=== PATIENT | male | born 1995 | race Caucasian/White ===

== ENCOUNTER 2019-01-18 11:32 | Inpatient (IN) | payer OTHER ==
[2019-01-18] MEDS ORDERED: TEARS/DEXTRAN 70/HYPROMELLOSE 15 ML OPHT.BTL EACHEYE PRN (14:06)
[2019-01-18] MEDS ORDERED: PETROLAT,WHT/MIN OIL/SOD CHL 3.5 GM OPHT.OINT EACHEYE PRN (14:06)
--- NOTE | 2019-01-18 14:44 | GHP ---
[f rep st] HISTORY AND PHYSICAL POST ADMISSION PHYSICIAN EVALUATION AND REHABILITATION TREATMENT PLAN DATE OF ADMISSION: 01/18/2019 DATE OF EVALUATION: 01/18/2019 TIME OF EVALUATION: 1330 REFERRING FACILITY: [facility]. IMPAIRMENT GROUP: 3.4. DATE OF ONSET: 01/11/2019 REFERRING PHYSICIAN: Dr. Acosta. CONSULTING PHYSICIANS: He was managed by the hospitalist Service, Pulmonary and Critical Care and Neurology, Dr. Arevalo. REHABILITATION DIAGNOSIS: Guillain-Elgin syndrome. ETIOLOGIC DIAGNOSIS: Guillain-Elgin syndrome. HISTORY OF PRESENT ILLNESS: This patient began to develop weakness and tingling of the extremities 1 to 2 weeks prior to his admission to [facility]. This followed symptoms of the flu and then sinusitis for which he was treated with antibiotics and corticosteroids. He was living in [facility]. As he was becoming symptomatic, his father went to [place] and he flew back to [place] with his father and then presented at the hospital. There, evaluation included an MRI of the brain which was normal, though it showed changes in the trigeminal nerve consistent with Guillain-Elgin. He had an LP which was also consistent with Guillain-Elgin. He was treated with IVIG and has had some improvement in his symptoms. Other laboratory studies during his stay (I do not have a comprehensive list): On admission, metabolic panel was essentially normal. He had a slight elevation of glucose at 105. CBC showed normal hemoglobin and hematocrit and white blood cell count and platelet count. CRP was normal. Lumbar puncture showed a slightly elevated white blood cell count at 8. HIV test was negative. Coagulation studies were negative. CSF protein was elevated. Chest x-ray showed a subtle infiltrate at the right base on 01/13/2019, which subsequently improved. On the day before discharge, CBC showed either dilution or blood loss from multiple lab draws. His hemoglobin was 14.2 and his hematocrit was 40 , platelet count and white blood cell counts were normal. Basic metabolic profile showed a very slightly low sodium at 135. PRECAUTIONS: He is a fall risk and he has aspiration precautions. ACTIVE COMORBIDITIES: He has the tier 2 comorbidity of dysphagia. Otherwise, he has no active tier 1, tier 2 or tier 3 comorbidities. PAST MEDICAL HISTORY: He has not had any significant medical illnesses. PAST SURGICAL HISTORY: He has had wisdom teeth extraction. PRE-HOSPITAL MEDICATIONS: He was not on any medications. ADMISSION MEDICATIONS: 1. Artificial Tears four times daily p.r.n. 2. Carvedilol 3.125 mg p.o. twice daily. 3. Enoxaparin 40 mg subcutaneous daily. 4. Gabapentin 300 mg three times daily. 5. Acetaminophen 650 mg p.o. q.6 hours p.r.n. ALLERGIES: There are no known drug allergies. SOCIAL HISTORY: He is currently living with his parents and plans to discharge to his parents' home. They may set up the bedroom on the on the 1st floor. There is a half bath on the 1st floor. There is a bedroom and full bath on the 2nd floor. 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 He is a nonsmoker. FAMILY HISTORY: Noncontributory. REVIEW OF SYSTEMS: He is not in pain, though he has some tingling in the extremities. He is aware of some difficulty with swallowing but no aspiration. He has difficulty with dry, crumbly foods. He is aware of reduced facial expression and oral weakness. He is unable to maintain a labial seal. He still has some double vision, but that has been improving. He has some irritation to his eyes. He thinks that he is stronger on his right side than his left side. He denies cough or dyspnea. He denies chest pain or palpitations. He denies nausea, vomiting, constipation, or diarrhea. He had constipation for several days in the hospital, but this has resolved. He denies dysuria or urinary frequency or any other difficulties with urination. He denies joint pain or joint swelling. He is in good spirits. Otherwise, a 10 -point review of systems is negative. PHYSICAL EXAM: VITAL SIGNS: Blood pressure is 129/66, heart rate is 111, respiratory rate is 15, oxygen saturation is 95% on room air. Temperature is 36.7 degrees centigrade. His weight is 75.3 kg for a body mass index of 23.8. GENERAL: This is a well-nourished, well-developed man, appears his chronologic age, cooperative and in no acute distress. Lying in bed, dressed in street clothes. HEENT: Extraocular movements are intact. He has inability to close his eyes fully with the lower lids not moving far enough to meet the upper lids. Pupils are equal, round, reactive to light. Mucous membranes are moist. Dentition is in good condition. He has a crowded airway, Mallampati class 1. NECK: Supple. HEART: Regular rate and rhythm with no gallops. LUNGS: Clear to auscultation bilaterally. ABDOMEN: Soft, nontender, nondistended. Normoactive bowel sounds and no hepatosplenomegaly. EXTREMITIES: There is no cyanosis, clubbing, or edema. NEUROLOGIC: He is alert and oriented x3. He has cranial nerve deficits with inability to close his lower eyelids and much reduced facial movement at the cranial nerves V1, V2 and V3 distribution. He is unable to maintain a labial seal. Tongue movement is normal and palate elevates symmetrically. Shoulder shrug is normal. Regarding motor strength, hand recooperer are 5/5 bilaterally. Biceps and triceps are 4+/5 in the left and 5/ 5 on the right. Hip flexors and quadriceps are 5/5 bilaterally. Hamstrings are 4/5 bilaterally. Sensation is intact to light touch. Deep tendon reflexes are absent at the biceps, patella and Achilles tendons. Rapid alternating movements are normal and [id number] testing is normal. CURRENT LEVEL OF FUNCTION: Per the pre-admission screen, he was on a dysphagia 4 diet, avoiding dry, crumbly food. He was taking thin liquids. He was noted to have mild dysphagia and difficulty with bolus cohesiveness with trace to minimal residue in the sulci. He had flaccid dysarthria. Grooming was done with contact guard standing at the sink with a front-wheeled walker. Bed mobility required close supervision with the head of the bed elevated and a bed rail. Transfers required minimal assist to contact guard assist. He used a front-wheeled walker. Seated balance required close supervision. Static standing balance required contact guard and dynamic standing balance required minimal assist. His endurance was fair. He ambulated 400 feet with minimal assist. He had an ataxic gait pattern and inconsistent step length. He ambulated with a slow adolph. Communication was normal. Cognition was considered normal. On today's exam, he appears to have improved bed mobility. Otherwise, there are no significant differences from the pre-admission screen. IMPRESSION: This is a 23-year-old man with Guillain-Elgin syndrome. Given significant bulbar symptoms, labs are still pending to rule out Ortiz Hanks variant. He has been treated with IVIG and he has had considerable improvement , though he still has gait abnormalities, balance abnormality, weakness on the left greater than the right side, mild dysphagia, significant dysarthria and other cranial nerve dysfunction. He is appropriate for inpatient rehabilitation. His goal is to complete a rehabilitation stay and then return home with his family and outpatient services. He does not plan to return to [facility] until he is fully healed. For a safe discharge, it is anticipated that he will tolerate a regular diet without signs or symptoms of aspiration. He will progress to modified independence for all activities of daily living and functional activities. He and his family will demonstrate understanding of his limitations and compensatory strategies. He will have therapy with physical therapy, occupational therapy, and speech and language pathology for 60 minutes per day for each discipline on 5 to 7 days of the week. His expected duration of stay is 7 to 10 days. It is anticipated that upon discharge he will have outpatient therapy with OT, [facility] and PT. PLAN: 1. Debility with left greater than right-sided weakness due to Guillain-Elgin syndrome. PT and OT to optimize mobility and activities of daily living to the modified independent level. 2. Dysarthria and mild dysphagia. 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 Evaluation for Speech and Language Pathology. 3. Tachycardia noted in the hospital. He has been treated with carvedilol. Vitals will be monitored. We will check orthostatic vital signs as well. 4. Incomplete closure of eyelids. I will prescribe ophthalmic ointment at bedtime and will monitor for any signs or symptoms of irritation. 5. History of influenza and sinusitis. Symptoms appear to have resolved. 6. Followup is unclear from hospital discharge paperwork. Most likely he will follow up with [facility] after his discharge. He will also need to follow up with a primary care physician. /[id number]/MODL MTDD
--- NOTE | 2019-01-18 16:52 | PDOREHIP ---
Admission [facility] - Admission - 3 Day Assessment Period Admission Date/Day 1: 01/18/19 Day 2: 01/19/19 Day 3: 01/20/19 - Active Diagnoses Comorbidities and Co-existing Conditions at Admission: 77251. None of the Above - Skin Conditions Unhealed Pressure Ulcer (1 or more/Stage 1 or >)-Admission: 0. No # Stage 1 Pressure Ulcers-Admission: 0 # Stage 2 Pressure Ulcers-Admission: 0 # Stage 3 Pressure Ulcers-Admission: 0 # Stage 4 Pressure Ulcers-Admission: 0 # Unstageable Pressure Ulcers (Non-remove Dress)-Admission: 0 # Unstageable Pressure Ulcers (Slough/Eschar)-Admission: 0 # Unstageable Pressure Ulcers (Deep Tissue Injury)-Admission: 0
[2019-01-18] MEDS: GABAPENTIN 300 MG CAP PO SCH ×2 (18:18→21:07)
[2019-01-18] MEDS: ENOXAPARIN 40 MG/0.4 ML SYR SC SCH (18:18)
[2019-01-18] MEDS: CARVEDILOL 3.125 MG TAB PO SCH (18:18)
[2019-01-19] MEDS: CARVEDILOL 3.125 MG TAB PO SCH ×2 (08:38→19:15)
[2019-01-19] MEDS: GABAPENTIN 300 MG CAP PO SCH ×3 (08:38→21:45)
--- NOTE | 2019-01-19 10:39 | SOAPPROG ---
SOAP Progress Note Assessment/Plan: Assessment: Debility with left greater than right-sided weakness due to Guillain-[place]field syndrome. PT and OT to optimize mobility and activities of daily living to the modified independent level. Dysarthria and mild dysphagia. 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 Evaluation for Speech and Language Pathology. 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 He has been treated with carvedilol. Vitals will be monitored. We will check orthostatic vital signs as well. Incomplete closure of eyelids. Continue ophthalmic ointment at bedtime and will monitor for any signs or symptoms of irritation. He may keep artificial tears with him and use as needed. History of influenza and sinusitis. Symptoms appear to have resolved. Followup is unclear from hospital discharge paperwork. Most likely he will follow up with [facility] after his discharge. He will also need to follow up with a primary care physician. 01/19/19 10:38 Subjective: Complains of difficulty attaining sleep due to generalized discomfort. Eyes feel okay. He would like to keep the eyedrops with him to use more frequently. Otherwise without complaints. No cough or dyspnea. No sheba dysphagia. Objective: Vital Signs Temp Pulse Resp BP Pulse Ox 39.9 C H 90 16 120/75 97 01/18/19 18:10 01/19/19 08:38 01/18/19 18:10 01/19/19 08:38 01/18/19 18:10 01/18/19 01/19/19 01/20/19 05:59 05:59 05:59 Intake Total 1450 Output Total 850 Balance 600 Physical Exam - Physical Exam General Appearance: WD/WN, alert, no apparent distress Respiratory: No respiratory distress, No accessory muscle use Skin: normal color, warm/dry Neuro/Psych: alert, normal mood/affect, abnormal archivist II-XII (Reduced movement of lower eyelids and reduced facial expression), speech abnormalities ( Dysarthria) ICD10 Worksheet Patient Problems: Problems Problem Status Onset Guillain Casanova syndrome Acute
[2019-01-19] MEDS ORDERED: TEARS/DEXTRAN 70/HYPROMELLOSE 15 ML OPHT.BTL EACHEYE PRN (10:40)
[2019-01-19] MEDS: ENOXAPARIN 40 MG/0.4 ML SYR SC SCH (16:24)
[2019-01-19] MEDS: ACETAMINOPHEN 500 MG TAB PO SCH (21:45)
[2019-01-20] MEDS: CARVEDILOL 3.125 MG TAB PO SCH ×2 (08:25→17:11)
[2019-01-20] MEDS: GABAPENTIN 300 MG CAP PO SCH ×3 (08:25→21:38)
--- NOTE | 2019-01-20 11:49 | SOAPPROG ---
SOAP Progress Note Assessment/Plan: Assessment: Debility with left greater than right-sided weakness due to Guillain-Cicero syndrome. * Initial functional independence measure is 85 on 01/20/2019. He transfers with standby assist to contact guard assist. Ambulates to 200 ft with a front wheeled walker, contact guard assist to standby assist. Climbed and descended 3 stairs with contact guard assist and bilateral rails. He does grooming and hygiene standing with a front wheeled walker and supervision. Upper body dressing is with setup and modified independence. Lower body dressing is with supervision for balance. Toilet transfers with supervision, toileting is with distant supervision. He has diplopia especially with fatigue. * Continue PT and OT to optimize mobility and activities of daily living to the modified independent level. Dysarthria and mild dysphagia. 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 * Flaccid be you cool and labial function but he compensates well for swallowing and speech. * Transient response to an MBS; will be appropriate with better return of nerve function. * Continue Speech and Language Pathology. Tachycardia noted in the hospital, possible autonomic dysfunction due to Guillain-Cicero syndrome. He has been treated with carvedilol. Vitals will be monitored. We will check orthostatic vital signs as well. Incomplete closure of eyelids. Continue ophthalmic ointment at bedtime and will monitor for any signs or symptoms of irritation. He may keep artificial tears with him and use as needed. History of influenza and sinusitis. Symptoms appear to have resolved. DISPOSITION: Attended staffing, 15 min, 01/20/2019. Discussed with case management, dietitian, nursing, PT, OT, BLADDER CHANGER. Intends to stay with his parents and [place] on tele as function is significantly improved, prior to return to living in [facility]. There are 2 platform steps to enter and then 7 steps to get to an upper level bedroom; otherwise he might stay on the 1st floor with a half bath. Tentative discharge date set for 01/25/2019. Followup is unclear from hospital discharge paperwork. Most likely he will follow up with [facility] after his discharge. He will also need to follow up with a primary care physician. 01/20/19 11:44 Subjective: No complaints. Feeling stronger. Sleeping well. Not in pain. Objective: Vital Signs Temp Pulse Resp BP Pulse Ox 36.3 C 102 H 20 128/88 H 95 01/19/19 20:00 01/20/19 07:48 01/20/19 07:48 01/20/19 07:48 01/20/19 07:48 01/19/19 01/20/19 01/21/19 05:59 05:59 05:59 Intake Total 1450 1820 200 Output Total 850 Balance 600 1820 200 - Time Spent With Patient Time Spent With Patient: Greater than 35 min floor time today, including more than 50% of time in coordination of care during staffing meeting, and counseling patient and his parents. Physical Exam - Physical Exam General Appearance: WD/WN, alert, no apparent distress Respiratory: No respiratory distress, No accessory muscle use Skin: normal color, warm/dry Neuro/Psych: alert, normal mood/affect, oriented x 3, abnormal supervisor uranium processing II-XII, abnormal gait ICD10 Worksheet Patient Problems: Problems Problem Status Onset Guillain Casanova syndrome Acute
[2019-01-20] MEDS: ENOXAPARIN 40 MG/0.4 ML SYR SC SCH (17:11)
[2019-01-20] MEDS: ACETAMINOPHEN 500 MG TAB PO SCH (21:11)
[2019-01-21] MEDS: GABAPENTIN 300 MG CAP PO SCH ×3 (08:17→21:15)
[2019-01-21] MEDS: CARVEDILOL 3.125 MG TAB PO SCH ×2 (08:17→17:22)
--- NOTE | 2019-01-21 12:31 | SOAPPROG ---
SOAP Progress Note Assessment/Plan: Assessment: Debility with left greater than right-sided weakness due to Guillain-[place] syndrome. * Initial functional independence measure is 85 on 01/20/2019. He transfers with standby assist to contact guard assist. Ambulates to 200 ft with a front wheeled walker, contact guard assist to standby assist. Climbed and descended 3 stairs with contact guard assist and bilateral rails. He does grooming and hygiene standing with a front wheeled walker and supervision. Upper body dressing is with setup and modified independence. Lower body dressing is with supervision for balance. Toilet transfers with supervision, toileting is with distant supervision. He has diplopia especially with fatigue. * Ordered left AFO to reduce ankle dorsiflexion and reduced knee buckling with ambulation, as indicated by PT. * Continue PT and OT to optimize mobility and activities of daily living to the modified independent level. Dysarthria and mild dysphagia. 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 * Flaccid buccal and labial function but he compensates well for swallowing and speech. * Transient response to NEMS; will be appropriate with better return of nerve function. * Continue Speech and Language Pathology. Tachycardia noted in the hospital, possible autonomic dysfunction due to Guillain-[place] syndrome. He has been treated with carvedilol. Vitals will be monitored. We will check orthostatic vital signs as well. Incomplete closure of eyelids. Continue ophthalmic ointment at bedtime and will monitor for any signs or symptoms of irritation. He may keep artificial tears with him and use as needed. History of influenza and sinusitis. Symptoms appear to have resolved. DISPOSITION: Attended staffing, 15 min, 01/20/2019. Discussed with case management, dietitian, nursing, PT, OT, PATIENT CARE DIRECTOR. Intends to stay with his parents and [place] [facility] as function is significantly improved, prior to return to living in [facility]. There are 2 platform steps to enter and then 7 steps to get to an upper level bedroom; otherwise he might stay on the 1st floor with a half bath. Tentative discharge date set for 01/25/2019. Followup is unclear from hospital discharge paperwork. Most likely he will follow up with [facility] after his discharge. He will also need to follow up with a primary care physician. 01/21/19 12:29 Subjective: No complaints. Denies eye irritation. Thinks his dysarthria is improving. Sleeping well. Not in pain. Objective: Vital Signs Temp Pulse Resp BP Pulse Ox 36.9 C 95 18 125/88 H 94 01/21/19 07:20 01/21/19 08:17 01/21/19 07:20 01/21/19 08:17 01/21/19 07:20 01/20/19 01/21/19 01/22/19 05:59 05:59 05:59 Intake Total 1820 3280 Output Total 250 750 Balance 1820 3030 -750 Physical Exam - Physical Exam General Appearance: WD/WN, alert, no apparent distress Respiratory: No respiratory distress, No accessory muscle use Skin: normal color, warm/dry Neuro/Psych: alert, normal mood/affect, oriented x 3, abnormal gait, speech abnormalities (Dysarthria) ICD10 Worksheet Patient Problems: Problems Problem Status Onset Guillain Casanova syndrome Acute
[2019-01-21] MEDS: ACETAMINOPHEN 325 MG TAB PO PRN (14:56)
[2019-01-21] MEDS: ENOXAPARIN 40 MG/0.4 ML SYR SC SCH (14:57)
[2019-01-21] MEDS: ACETAMINOPHEN 500 MG TAB PO SCH (21:15)
[2019-01-22] MEDS: CARVEDILOL 3.125 MG TAB PO SCH ×2 (09:13→18:19)
[2019-01-22] MEDS: GABAPENTIN 300 MG CAP PO SCH ×3 (09:13→21:36)
--- NOTE | 2019-01-22 09:37 | SOAPPROG ---
SOAP Progress Note Assessment/Plan: Assessment: Debility with left greater than right-sided weakness due to Guillain-[place] syndrome. * Initial functional independence measure is 85 on 01/20/2019. He transfers with standby assist to contact guard assist. Ambulates to 200 ft with a front wheeled walker, contact guard assist to standby assist. Climbed and descended 3 stairs with contact guard assist and bilateral rails. He does grooming and hygiene standing with a front wheeled walker and supervision. Upper body dressing is with setup and modified independence. Lower body dressing is with supervision for balance. Toilet transfers with supervision, toileting is with distant supervision. He has diplopia especially with fatigue. * Ordered left AFO to reduce ankle dorsiflexion and reduced knee buckling with ambulation, as indicated by PT. * Continue PT and OT to optimize mobility and activities of daily living to the modified independent level. Dysarthria and mild dysphagia. 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 * Flaccid buccal and labial function but he compensates well for swallowing and speech. * Transient response to NEMS; will be appropriate with better return of nerve function. * Continue Speech and Language Pathology. Tachycardia noted in the hospital, possible autonomic dysfunction due to Guillain-[place] syndrome. He has been treated with carvedilol. Vitals will be monitored. * Improving as of 01/22/2019. Consider discontinuation of carvedilol. Incomplete closure of eyelids. Continue ophthalmic ointment at bedtime and will monitor for any signs or symptoms of irritation. He may keep artificial tears with him and use as needed. History of influenza and sinusitis. Symptoms appear to have resolved. DISPOSITION: Attended staffing, 15 min, 01/20/2019. Discussed with case management, dietitian, nursing, PT, OT, AUDIT PARTNER. Intends to stay with his parents and [place] on tele as function is significantly improved, prior to return to living in [facility]. There are 2 platform steps to enter and then 7 steps to get to an upper level bedroom; otherwise he might stay on the 1st floor with a half bath. Tentative discharge date set for 01/25/2019. Followup is unclear from hospital discharge paperwork. Most likely he will follow up with [facility] after his discharge. He will also need to follow up with a primary care physician. 01/22/19 09:36 Subjective: No complaints. Slept well. Not in pain. No cough or dyspnea, no fever chills. Objective: Vital Signs Temp Pulse Resp BP Pulse Ox 37.0 C 96 18 127/79 H 95 01/21/19 20:00 01/22/19 09:13 01/21/19 20:00 01/22/19 09:13 01/21/19 20:00 01/21/19 01/22/19 01/23/19 05:59 05:59 05:59 Intake Total 3280 1970 Output Total 250 750 Balance 3030 1220 Physical Exam - Physical Exam General Appearance: WD/WN, alert, no apparent distress Respiratory: No respiratory distress, No accessory muscle use Skin: normal color, warm/dry Neuro/Psych: alert, normal mood/affect, oriented x 3, abnormal business project manager II-XII ( Incomplete eye closure with lower lids not moving. Reduced facial skin.), abnormal gait, speech abnormalities (Dysarthria) ICD10 Worksheet Patient Problems: Problems Problem Status Onset Guillain Casanova syndrome Acute
[2019-01-22] MEDS: ENOXAPARIN 40 MG/0.4 ML SYR SC SCH (15:59)
[2019-01-22] MEDS: ACETAMINOPHEN 500 MG TAB PO SCH (21:36)
[2019-01-23] MEDS: GABAPENTIN 300 MG CAP PO SCH (08:17)
[2019-01-23] MEDS: CARVEDILOL 3.125 MG TAB PO SCH ×2 (08:17→17:39)
--- NOTE | 2019-01-23 10:04 | SOAPPROG ---
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 * Initial functional independence measure is 85 on 01/20/2019. He transfers with standby assist to contact guard assist. Ambulates to 200 ft with a front wheeled walker, contact guard assist to standby assist. Climbed and descended 3 stairs with contact guard assist and bilateral rails. He does grooming and hygiene standing with a front wheeled walker and supervision. Upper body dressing is with setup and modified independence. Lower body dressing is with supervision for balance. Toilet transfers with supervision, toileting is with distant supervision. He has diplopia especially with fatigue. * Independent in his room since 01/21/2019. * Continue PT and OT to optimize mobility and activities of daily living to the modified independent level. Dysarthria and mild dysphagia. 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 * Flaccid buccal and labial function but he compensates well for swallowing and speech. * Transient response to NMES; will be appropriate with better return of nerve function. * Continue Speech and Language Pathology. 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 He has been treated with carvedilol. Vitals will be monitored. * Improving as of 01/22/2019. Consider discontinuation of carvedilol. Neuropathic symptoms in the extremities are not bothersome. Will reduce gabapentin from 300 mg three times daily to 100 mg three times daily on 2018. If no worsening in symptoms will discontinue gabapentin on 01/24/2019. Incomplete closure of eyelids. Continue ophthalmic ointment at bedtime and will monitor for any signs or symptoms of irritation. He may keep artificial tears with him and use as needed. History of influenza and sinusitis. Symptoms appear to have resolved. Prophylaxis. Mobility is much improved. Discontinue enoxaparin starting 2018. DISPOSITION: Attended staffing, 15 min, 01/20/2019. Discussed with case management, dietitian, nursing, PT, OT, TRAILER CHIEF. Intends to stay with his parents and [place] on tele as function is significantly improved, prior to return to living in [facility]. There are 2 platform steps to enter and then 7 steps to get to an upper level bedroom; otherwise he might stay on the 1st floor with a half bath. Tentative discharge date set for 01/25/2019. Followup is unclear from hospital discharge paperwork. Most likely he will follow up with [facility] after his discharge. He will also need to follow up with a primary care physician. 01/23/19 10:01 Subjective: No complaints. Sleeping well. Not in pain. He reports some tingling in the extremities but is not painful. Objective: Vital Signs Temp Pulse Resp BP Pulse Ox 36.9 C 115 H 17 104/70 97 01/22/19 19:46 01/23/19 08:00 01/23/19 08:00 01/23/19 08:00 01/23/19 08:00 01/22/19 01/23/19 01/24/19 05:59 05:59 05:59 Intake Total 1970 2310 620 Output Total 750 Balance 1220 2310 620 Physical Exam - Physical Exam General Appearance: WD/WN, alert, no apparent distress Respiratory: No respiratory distress, No accessory muscle use Skin: normal color, warm/dry Neuro/Psych: alert, normal mood/affect, oriented x 3, abnormal merry go round operator II-XII ( Lower eyelids not closing. Reduced facial expression), abnormal gait (Normal pace with front wheeled walker. Reduced knee flexion.), speech abnormalities ( Mild dysarthria.) ICD10 Worksheet Patient Problems: Problems Problem Status Onset Guillain Casanova syndrome Acute
[2019-01-23] MEDS: ACETAMINOPHEN 325 MG TAB PO PRN ×2 (12:29→18:52)
[2019-01-23] MEDS: GABAPENTIN 100 MG CAP PO SCH ×2 (17:04→21:43)
[2019-01-24] MEDS: ACETAMINOPHEN 500 MG TAB PO SCH ×2 (02:32→21:21)
[2019-01-24] MEDS: CARVEDILOL 3.125 MG TAB PO SCH ×2 (08:25→17:36)
[2019-01-24] MEDS: GABAPENTIN 100 MG CAP PO SCH (08:25)
--- NOTE | 2019-01-24 10:44 | PDOREHIP ---
Admission [facility] - Admission - 3 Day Assessment Period Admission Date/Day 1: 01/18/19 Day 2: 01/19/19 Day 3: 01/20/19 - Active Diagnoses Comorbidities and Co-existing Conditions at Admission: 41425. None of the Above Discharge [facility] - Discharge - 3 Day Assessment Period 2 Days Prior to Anticipated Discharge Date: 01/23/19 1 Day Prior to Anticipated Discharge Date: 01/24/19 Anticipated Discharge Date: 01/25/19 - Discharge Skin Conditions Unhealed Pressure Ulcer (1 or more/Stage 1 or >)-Discharge: 0. No # Stage 1 Pressure Ulcers-Discharge: 0 # Stage 2 Pressure Ulcers-Discharge: 0 # of These Stage 2 Pressure Ulcers Present on Admission: 0 # Stage 3 Pressure Ulcers-Discharge: 0 # of These Stage 3 Pressure Ulcers Present on Admission: 0 # Stage 4 Pressure Ulcers-Discharge: 0 # of These Stage 4 Pressure Ulcers Present on Admission: 0 # Unstageable Pressure Ulcers (Non-remove Dress)-Discharge: 0 # These Unstageable Pressure Ulcers (NRD)-Present on Admit: 0 # Unstageable Pressure Ulcers (Slough/Eschar)-Discharge: 0 # These Unstageable Pressure Ulcers(Slough) Present on Admit: 0 # Unstageable Pressure Ulcers (Deep Tissue Injury)-Discharge: 0 # These Unstageable Pressure Ulcers (DTI) Present on Admit: 0
--- NOTE | 2019-01-24 10:44 | SOAPPROG ---
SOAP Progress Note Assessment/Plan: Assessment: Debility with left greater than right-sided weakness due to Guillain-[employer] [place] [employer] syndrome. * Initial functional independence measure is 85 on 01/20/2019. He transfers with standby assist to contact guard assist. Ambulates to 200 ft with a front wheeled walker, contact guard assist to standby assist. Climbed and descended 3 stairs with contact guard assist and bilateral rails. He does grooming and hygiene standing with a front wheeled walker and supervision. Upper body dressing is with setup and modified independence. Lower body dressing is with supervision for balance. Toilet transfers with supervision, toileting is with distant supervision. He has diplopia especially with fatigue. * Independent in his room since 01/21/2019. * Continue PT and OT to optimize mobility and activities of daily living to the modified independent level. Dysarthria and mild dysphagia. 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 * Flaccid buccal and labial function but he compensates well for swallowing and speech. * Transient response to NMES; will be appropriate with better return of nerve function. * Continue Speech and Language Pathology. Tachycardia noted in the hospital, possible autonomic dysfunction due to Guillain-[employer] syndrome. He has been treated with carvedilol. Vitals will be monitored. * Improving as of 01/22/2019. Consider discontinuation of carvedilol, but heart rate was measured at 115 on 01/23/2019. Neuropathic symptoms in the extremities are not bothersome. Will reduce gabapentin from 300 mg three times daily to 100 mg three times daily on 2018. * No worsening of symptoms. Discontinue gabapentin 01/24/2019. Incomplete closure of eyelids. Continue ophthalmic ointment at bedtime and will monitor for any signs or symptoms of irritation. He may keep artificial tears with him and use as needed. History of influenza and sinusitis. Symptoms appear to have resolved. Prophylaxis. Mobility is much improved. Discontinue enoxaparin starting 2018. DISPOSITION: Attended staffing, 15 min, 01/20/2019. Discussed with case management, dietitian, nursing, PT, OT, NET TRAINER. Intends to stay with his parents and [place] [facility] as function is significantly improved, prior to return to living in [facility]. There are 2 platform steps to enter and then 7 steps to get to an upper level bedroom; otherwise he might stay on the 1st floor with a half bath. Tentative discharge date set for 01/25/2019. Followup is unclear from hospital discharge paperwork. Most likely he will follow up with [facility] after his discharge. He will also need to follow up with a primary care physician. 01/24/19 10:42 Subjective: No complaints. Sleeping well. Tingling is almost gone in his feet. He still has some numbness and tingling in his hands. There has been no worsening with the reduction in gabapentin dose. Objective: Vital Signs Temp Pulse Resp BP Pulse Ox 36.5 C 95 16 131/84 H 95 01/24/19 08:00 01/24/19 08:00 01/24/19 08:00 01/24/19 08:00 01/24/19 08:00 01/23/19 01/24/19 01/25/19 05:59 05:59 05:59 Intake Total 2310 1979 620 Balance 2310 1980 620 Physical Exam - Physical Exam General Appearance: WD/WN, alert, no apparent distress Respiratory: No respiratory distress, No accessory muscle use Skin: normal color, warm/dry Neuro/Psych: alert, normal mood/affect, oriented x 3, abnormal psychologist educational II-XII ( Lower lids do not close. Reduced facial expression.), speech abnormalities ( Dysarthria, improving) ICD10 Worksheet Patient Problems: Problems Problem Status Onset Guillain Casanova syndrome Acute
[2019-01-25] MEDS: CARVEDILOL 3.125 MG TAB PO SCH (07:55)
[2019-01-25 07:57] VITALS: BP 117/79
--- NOTE | 2019-01-25 14:45 | GDS ---
[f rep st] DISCHARGE SUMMARY ADMITTING DIAGNOSIS: Guillain-[place] syndrome. DISCHARGE DIAGNOSIS: Guillain-[place] syndrome. HISTORY AND HOSPITAL COURSE: This patient came to [facility] inpatient rehabilitation from [facility]. He had presented there on 01/11/2019. Symptoms developed gradually after having a flu-like illness and then a sinusitis for which he was treated with antibiotics and corticosteroids. He was living in [facility]. as he was developing his symptoms, his father went to [place] and then flew back with him to [place] and took him to the hospital. Evaluation included MRI of the brain which was normal which showed changes in the trigeminal nerve consistent with Guillain- [place] syndrome. LP was also consistent with Guillain-[place]. He was treated with IVIG and had some improved symptoms. He did well in rehabilitation. He had considerable improvement in mobility to the point at which he was independent in his room. He was ambulating with bilateral trekking poles and an overall normal gait. He ambulated as far as 200 feet. He was able to climb and descend 3 stairs x4 with a trekking pole and a rail with standby assist with a step 2 pattern. He continued to have deficits to dexterity and frame repairer strength. The 9 hole PEG test took him 32 seconds, longer than normal. He was stronger on the right than the left hand and pinch frame repairer. He achieved independent or modified independent using an assistive device ability with activities of daily living. He continues to have intermittent diplopia. He had dysarthria related to cranial nerve 7 deficits. He worked with Speech Therapy on this. He had improvement in intelligibility of speech and was judged to be 85% intelligible. He continued to have incomplete eye closure with no movement in the lower lids. He was treated with ophthalmic ointment at bedtime and with eyedrops p.r.n., and he did not have any symptoms or signs of irritation of cornea or sclera. He had tachycardia in the hospital, related to autonomic nervous system dysfunction due to Guillain-[place]. He was treated with carvedilol. He had no tachycardia since 01/20/2019, except for 1 episode noted on 01/23/2019, which heart rate was 115. Otherwise since January 23, heart rate has ranged from 83 to 96. Initially, he was treated with gabapentin as ordered out of the hospital for neuropathic symptoms in the extremities. These improved. Gabapentin was tapered and then discontinued. No return of bothersome symptoms. DISPOSITION: Home with parents. ACTIVITY: Ad marlen. DIET: Regular. He continues to have no drug allergies. MEDICATIONS ON DISCHARGE: 1. Acetaminophen 650 mg p.o. q.6 hours p.r.n. 2. Carvedilol 3.125 mg p.o. twice daily. 3. Ophthalmic ointment at h.s. both eyes. ISSUES TO BE ADDRESSED AT FOLLOWUP: 1. Mobility and activities of daily living. He will continue PT and OT. 2. Dysarthria. He has made progress but will benefit from continued Speech and Language Pathology. 3. Tachycardia has largely resolved. He could probably have a trial without carvedilol and he was counseled about this. 4. Guillian [place] syndrome. He will have follow up with Neurologist, Dr. Wellington Watson, scheduled for March 01, 2019. He can also follow up with his primary care provider, Dr. Nabor Lemon. TIME SPENT: Greater than 30 minutes were spent on this discharge including medication reconciliation, coordination of care, and counseling patient. Copy requested to: Dr. Nabor Lemon /[id number]/MODL MTDD
== END 2019-01-25 13:31 | disposition still patient (30) | DRG 96 ==
LOC: BREH 12:56
PROVIDERS: ADMIT Internal Medicine Hospice and Palliative Medicine; ATTEND Internal Medicine Hospice and Palliative Medicine
DX: G61.0 Guillain-Barre syndrome (principal); R13.10 Dysphagia, unspecified; R47.1 Dysarthria and anarthria; R00.0 Tachycardia, unspecified
CPT/HCPCS: 92507-GN; 92523-GN; 92526-GN; 92610-GN; 97110-GO; 97110-GP; 97112-GP; 97116-GP; 97162-GP; 97166-GO; 97530-GO; 97530-GP; 97535-GO; G0515-GO; J1650